=== PATIENT | female | born 1925 | race Caucasian/White ===

== ENCOUNTER 2016-09-07 11:37 | Emergency (ER) | payer MEDICARE, BC ==
--- NOTE | ~2016-09-07 | CT107 ---
[facility] A Service [facility] RADIOLOGY TEXT RESULTS PATIENT: JÚNIOR YAP LOCATION: [facility] : [birth year] UNIT #: [id number] AGE: [address]: Ector Dodge MD SEX: F ORDER DR: [id number] [address] [place], [place] [address] [id number] MR#: [id number] Acc #: [id number] NAME: JÚNIOR YAP. : 1925 SEX: F STUDY DATE/TIME: 09/07/2016 12:34 UNIT: [facility] ROOM: STUDY DESCRIPTION: CT Pelvis Wo Cont Attending Physician: Ector Dodge M.D. Ordering Physician: Ed Doctor [id number] [facility] Primary Care Physician: Primary Care Physician No MEDICAL IMAGING REPORT This report is preliminary unless electronic signature is present EXAM CT pelvis INDICATION Left hip pain for [address] of the pelvis without contrast. Coronal and sagittal reconstructions were obtained. This CT exam was performed with one or more of the following radiation dose reduction techniques: automatic exposure control, adjustment of mA and/or kV according to patient size, and iterative reconstruction. COMPARISON None available. FINDINGS There is no acute fracture or dislocation. Patient has some mild arthrosis involving both hips. In the left hip, there is some subchondral cyst formation associated with the acetabulum. Degenerative changes are less prominent than right hip. No hip effusion. No evidence of a significant hematoma within the proximal thigh. No enlarged pelvic or inguinal lymph nodes. There is pelvic floor insufficiency. Uterus is surgically absent. IMPRESSION 1. No acute findings. 2. 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 Dictated by... [facility] A Service [facility] RADIOLOGY TEXT RESULTS PATIENT: JÚNIOR YAP LOCATION: [facility] : [birth year] UNIT #: [id number] AGE: [address]: Ector Dodge MD SEX: F ORDER DR: Mina P. Chen, M.D. THIS IS AN ELECTRONICALLY VERIFIED REPORT Mina Siddiqui M.D. at 09/08/2016 10:44 AM ALEXANDRU/mervin TD: 09/08/2016 09:14 JOB #: [id number] MEDICAL IMAGING REPORT Page 1 of 1 COPY
[~2016-09-07 11:37] MED LIST: ASPIRINBUFF PO; DARVOCET-N 1001 TAB PO; KEFLEX PO
== END 2016-09-07 15:00 | disposition home or self-care (01) ==
LOC: CED 11:37
DX: M25.552 Pain in left hip (principal); Z90.710 Acquired absence of both cervix and uterus; Z88.5 Allergy status to narcotic agent
CPT/HCPCS: 72192; 96372; 99284; J1885

== ENCOUNTER → 2016-11-19 | Outpatient (CLI) | payer MEDICARE, BC ==
--- NOTE | ~2016-11-19 | NM5 ---
[facility] A Service of [facility] RADIOLOGY TEXT RESULTS PATIENT: JÚNIOR YAP LOCATION: [facility] : [birth year] UNIT #: [id number] AGE: [address]: Moreno Montes De Oca MD SEX: F ORDER DR: [id number] [address] [place], [place] [address] [id number] O MR#: [id number] Acc #: [id number] NAME: JÚNIOR YAP. : 1925 SEX: F STUDY DATE/TIME: 11/19/2016 13:03 UNIT: [facility] ROOM: STUDY DESCRIPTION: CO Bone or Joint Limited Scan Attending Physician: Rene Montes De Oca M.D. Referring Physician: Rene Montes De Oca M.D. Ordering Physician: Rene Montes De Oca M.D. Primary Care Physician: Rene Montes De Oca M.D. MEDICAL IMAGING REPORT This report is preliminary unless electronic signature is present EXAM Whole-body bone scan HISTORY 89-year-old female with weight loss left hip pain. COMPARISON CT pelvis 09/07/2016. TECHNIQUE Whole-body anterior and posterior acquisitions were performed following the intravenous administration of 28.4 mCi technetium-99m MDP. FINDINGS Examination demonstrates foci of increased uptake within the lumbar spine predominately on the right at the L3-4 level. This is most likely degenerative in nature. Minimal increased uptake is seen within the hip joints again compatible with early degenerative changes. Increased uptake within the distal aspect of the left long finger most likely represents degenerative change or sequela of old trauma. Bilateral renal activity and normal bladder activity noted. No abnormal uptake identified within the long bones pelvis/ribs to suggest metastatic disease. Bilateral renal activity and normal bladder activity noted. IMPRESSION 1. Mild degenerative uptake within both hips. 2. Degenerative uptake lumbar spine most prominent on the right at the L3-4 level. 3. No findings to suggest osseous metastatic disease. Dictated by.Colin Cervantes M.D. [facility] A Service [facility] RADIOLOGY TEXT RESULTS PATIENT: JÚNIOR YAP [id number] : [birth year] UNIT #: [id number] AGE: [address]: Moreno Montes De Oca MD SEX: F ORDER DR: THIS IS AN ELECTRONICALLY VERIFIED REPORT Bruna Cervantes M.D. at 11/20/2016 3:43 PM Suha TD: 11/20/2016 15:10 JOB #: [id number] MEDICAL IMAGING REPORT Page 1 of 1 COPY
== END | disposition home or self-care (01) ==
LOC: CNUC 11-18 09:00
DX: R63.4 Abnormal weight loss (principal); G89.4 Chronic pain syndrome; R94.8 Abnormal results of function studies of other organs and systems
CPT/HCPCS: 78300; A9503